=== PATIENT | female | born 1985 | race Caucasian/White ===

== ENCOUNTER 2017-09-27 15:54 | Inpatient (IN) | payer OTHER ==
[~2017-09-27] VITALS: Ht 165.1 cm; Wt 78.0 kg
[~2017-09-27 15:54] MED LIST: REGLAN; REGLAN5 MG/5 ML
[2017-09-27] MEDS ORDERED: PRENATAL TABLE1 EAC1 PO (16:10)
[2017-09-29] MEDS ORDERED: FAMOTIDINE20 MG PO (08:41)
== END 2017-09-29 10:49 | disposition home or self-care (01) | DRG 781 ==
LOC: LDR 15:54 → OB/GYN 09-28 10:43
PROC: 4A1HXCZ Monitoring of Products of Conception, Cardiac Rate, External Approach (ICD-10-PCS; principal; 2017-09-27)
DX: O99.613 Diseases of the digestive system complicating pregnancy, third trimester (principal); K52.89 Other specified noninfective gastroenteritis and colitis; E86.0 Dehydration; Z3A.35 35 weeks gestation of pregnancy